=== PATIENT | male | born 1985 | race Caucasian/White ===

== ENCOUNTER 2016-06-10 14:03 | Emergency (ER) | payer OTHER ==
[2016-06-10 14:14] VITALS: BMI 32.1
--- NOTE | 2016-06-10 14:49 | PDOC ---
History of Present Illness - General Chief Complaint: Chest Pain Stated Complaint: CHEST PAIN Time Seen by Provider: 06/10/16 14:35 History Source: Patient Exam Limitations: No Limitations - History of Present Illness Initial Comments: CHIEF COMPLAINT: 30 y/o afebrile transgender male transitioning to female with PMH HTN c/o chest pain and palpitations since last night. HISTORY OF PRESENT ILLNESS: The patient states that last night her heart started racing and she had associated left sided chest pain with some left arm numbness. The patient states her BP was high last night and she felt anxious so she took his BP meds. She does admit she does not take her BP meds regularly. She denies POND, dizziness, f/c, n/v/d, SOB, abd pain, jaw pain, back pain. She states the symptoms have continued today. Vital signs on arrival are notable for pulse of 100. REVIEW OF SYSTEMS: GENERAL/CONSTITUTIONAL: No fever/chills. No weakness. No weight change. HEAD, EYES, EARS, NOSE AND THROAT: No change in vision. No ear pain or discharge. No sore throat. CARDIOVASCULAR: +chest pain. +palpitations. No shortness of breath. RESPIRATORY: No cough, wheezing, or hemoptysis. GASTROINTESTINAL: No abd pain, nausea, vomiting, diarrhea. GENITOURINARY: No dysuria, frequency, or change in urination. MUSCULOSKELETAL: +left arm pain. No neck or back pain. SKIN: No rash or easy bruising. NEUROLOGIC: No headache, vertigo, loss of consciousness, or loss of sensation. PHYSICAL EXAM: GENERAL: The patient is awake, alert, and fully oriented, in no acute distress. She is ambulatory and well appearing. HEAD: Normal with no signs of trauma. ENT: Pupils equal, round and reactive to light, extraocular movements intact, sclera anicteric, conjunctiva clear. Neck supple. LUNGS: Clear to auscultation bilaterally. Normal excursion. No respiratory distress or use of accessory muscles. CV: RRR, S1/S2, no MRG. Cap refill < 2 sec. CHEST WALL: No reproducible pain with palpation of chest wall. ABDOMEN: Soft, non-distended, non-tender even to deep palpation, no hepatomegaly or splenomegaly, no masses. EXTREMITIES: Normal range of motion, no edema. NEUROLOGICAL: Normal speech, normal gait. CN II-XII grossly intact. PSYCH: Normal mood, normal affect. SKIN: Warm, dry, normal turgor, no rashes or lesions noted. Past History - Past Medical History Allergies/Adverse Reactions: Allergies Allergy/AdvReac Type Severity Reaction Status Date / Time No Known Allergies Allergy Verified 06/10/16 14:10 Home Medications: Ambulatory Orders Levofloxacin [Levaquin] 750 mg PO DAILY #5 tablet 08/20/15 Metronidazole [Flagyl -] 500 mg PO TID #15 tablet 08/20/15 Anemia: No Asthma: No Cancer: No Cardiac Disorders: No CVA: No COPD: No CHF: No Dementia: No Diabetes: No GI Disorders: Yes Disorders: No HTN: Yes Hypercholesterolemia: No Liver Disease: No Suicide Attempt (Hx): No Seizures: No Thyroid Disease: No - Surgical History Abdominal Surgery: No Appendectomy: No Cardiac Surgery: No Cholecystectomy: No Lung Surgery: No Neurologic Surgery: No Orthopedic Surgery: No - Immunization History Immunization Up to Date: Yes - Psycho/Social/Smoking Cessation Hx Anxiety: No Suicidal Ideation: No Smoking History: Never smoked Have you smoked in the past 12 months: No Hx Alcohol Use: No Drug/Substance Use Hx: No Substance Use Type: None Hx Substance Use Treatment: No Cardiac Specific PMH - Complaint Specific PMHX Pacemaker: No *Physical Exam - Vital Signs Last Vital Signs Temp Pulse Resp BP Pulse Ox 87 19 134/92 97 06/10/16 16:40 06/10/16 16:40 06/10/16 16:40 06/10/16 16:40 Heart Score/ECG Review - ECG Intrepretation Comment:: Twelve-lead EKG was performed and reviewed by Dr. Lopez. There is normal sinus rhythm with a normal rate. The axis is normal. The intervals are normal. There are no ST or T wave abnormalities. Impression: Normal twelve-lead EKG ED Treatment Course - LABORATORY CBC & Chemistry Diagram: 06/10/16 14:50 06/10/16 14:50 - ADDITIONAL ORDERS Additional order review: Laboratory Results 06/10/16 14:50 Sodium 141 Potassium 4.4 Chloride 100 Carbon Dioxide 33 H D Anion Gap 8 BUN 13 D Creatinine 1.0 Creat Clearance w eGFR > 60 Random Glucose 93 Calcium 9.5 D Total Bilirubin 0.9 D AST 16 ALT 23 Alkaline Phosphatase 62 D Creatine Kinase 116 Troponin I < 0.02 Total Protein 8.4 H D Albumin 4.4 D 06/10/16 14:50 RBC 5.32 MCV 89.7 MCHC 34.0 RDW 12.8 MPV 8.0 Neutrophils % 66.5 Lymphocytes % 25.0 Monocytes % 5.9 Eosinophils % 0.7 Basophils % 1.9 D - RADIOLOGY Radiology Studies Ordered: Category Date Time Status CHEST PA & LAT [RAD] Stat Radiology 06/10/16 14:49 Completed Medical Decision Making - Medical Decision Making A/P: 30 y/o female with chest pain and palpitations since last night. Plan is as follows: 1. EKG 2. CXR 3. Labs Ekg - normal CXR IMPRESSION: Normal chest Labs unremarkable. Informed the patient of her results. Instructed her to take her BP medication daily. Will provide cardiology referral and suggested she call this week for possible holter monitor. Pt instructed to return to the ER with any worsening or concerning symptoms. The patient verbalizes understanding of all instructions, has no further questions and is awaiting discharge. *DC/Admit/Observation/Transfer Diagnosis at time of Disposition: Atypical chest pain - Discharge Dispostion Disposition: HOME Condition at time of disposition: Good - Referrals Referrals: José Miguel Joseph MD [Staff Physician] - Call tomorrow - Patient Instructions Printed Discharge Instructions: DI for Atypical Chest Pain Additional Instructions: Discharge Instructions:
[2016-06-10 15:10] LABS: BASOPHIL 1.9 % (0-2.0); EOSINOPHIL 0.7 % (0-4.5); MCH 30.5 pg (25.7-33.7); MEAN CELL VOLUME 89.7 fl (80-96); NEUTROPHILS 66.5 % (42.8-82.8); PLATELET COUNT 305 K/MM3 (134-434); RDW 12.8 % (11.9-15.9); WHITE BLOOD COUNT 7.6 K/mm3 (4.0-10.0)
[2016-06-10 15:53] LABS: ALBUMIN 4.4 g/dl (3.4-5.0); ANION GAP 8 (8-16); BILIRUBIN,TOTAL 0.9 mg/dL (0.2-1.0); CALCIUM 9.5 mg/dL (8.5-10.1); CO2 33 mmol/L (21-32); GLUCOSE,RANDOM 93 mg/dL (74-106); SGOT/AST 16 U/L (15-37); SGPT/ALT 23 U/L (12-78); TOT PROT 8.4 g/dl (6.4-8.2)
[2016-06-10 15:56] LABS: ALK PHOS 62 U/L (45-117); TROPONIN I < 0.02 ng/ml (0.00-0.05)
[2016-06-10 16:41] VITALS: BP 134/92; PULSE 87
--- NOTE | 2016-06-17 12:59 | EKG ---
Test Reason : Blood Pressure : / mmHG Vent. Rate : 081 BPM Atrial Rate : 081 BPM P-R Int : 120 ms QRS Dur : 092 ms QT Int : 342 ms P-R-T Axes : 074 017 011 degrees QTc Int : 397 ms NORMAL SINUS RHYTHM NORMAL ECG NO PREVIOUS ECGS AVAILABLE Confirmed by TAMIR BERRY MD ([id number]) on 06/17/2016 12:58:45 PM Referred By: Confirmed By:TAMIR BERRY MD
== END 2016-06-10 17:04 | disposition home or self-care (01) ==
LOC: JERFT 14:03
DX: R07.89 Other chest pain (principal); I10 Essential (primary) hypertension; Z91.14 Patient's other noncompliance with medication regimen
CPT/HCPCS: 36415; 71020-TC; 80053; 82550; 84484; 85025; 93005; 93010; 99281-25